=== PATIENT | male | born 1965 | race Caucasian/White ===

== ENCOUNTER 2022-10-18 10:10 | Observation (INO) | payer OTHER, SELFPAY ==
[2022-10-18] VITALS (54 sets, daily range): BP systolic 96–171; BP diastolic 61–106; PULSE 77–134; RESP 12–24; TEMP 36.5–36.9; O2SAT 88–100; BMI 28.4
--- NOTE | 2022-10-18 10:12 | ED.NURSE ---
Pt straight to CT from EMS.
--- NOTE | 2022-10-18 10:15 | ED.NURSE ---
at bedside in imaging.
--- NOTE | 2022-10-18 10:26 | CRLHL7_ITS ---
For Patients: As a result of the Century Cures Act, medical imaging exams and procedure reports are released immediately into your electronic medical record. You may view this report before your referring provider. If you have questions, please contact your health care provider. DATE: 10/18/2022 CLINICAL HISTORY: Patient with aphasia. TECHNIQUE: Standard helical CT image acquisition through the intracranial circulation following intravenous administration of contrast material with bolus tracking. 2D and 3D MIP images for post-processing were performed and interpreted on an independent workstation and 3D images were permanently archived. COMPARISON: CT same day. FINDINGS: There is no cerebral aneurysm or large vessel occlusion. The right internal carotid artery is normal. The right middle cerebral artery and its branches are normal. The right anterior cerebral artery and its branches are normal. The left internal carotid artery is normal. The left middle cerebral artery and its branches are normal. The left anterior cerebral artery and its branches are normal. The anterior communicating artery is well visualized and appears normal. The right vertebral artery and PICA are normal. The left vertebral artery and PICA are normal. The left vertebral artery is dominant. The basilar artery is patent and appears normal. The right posterior cerebral artery is normal. The left posterior cerebral artery is normal. The visualized venous structures are patent. IMPRESSION: Normal CT angiogram of the head without intracranial aneurysm or other neurovascular abnormality. Please note that all CT scans at this facility use dose modulation, iterative reconstruction, and/or weight-based dosing when appropriate to reduce radiation dose to as low as reasonably achievable. Dictated by Aracelis Joseph MD @ 10/18/2022 2:15:16 PM (Electronically Signed)
--- NOTE | 2022-10-18 10:26 | CRLHL7_ITS ---
For Patients: As a result of the Century Cures Act, medical imaging exams and procedure reports are released immediately into your electronic medical record. You may view this report before your referring provider. If you have questions, please contact your health care provider. INDICATION: UNABLE TO COMMUNICATE COMPARISON: none TECHNIQUE: A CT volumetric acquisition was performed of the brain without IV contrast. Please note that all CT scans at this facility use dose modulation, iterative reconstruction, and/or weight-based dosing when appropriate to reduce radiation dose to as low as reasonably achievable. FINDINGS: There is a geographic area of low attenuation involving the left posterior parietal cortex extending into the subcortical white matter with associated ex vacuo dilation of the posterior horn left lateral ventricle. No intracranial hemorrhage or midline shift. No hydrocephalus or extra-axial fluid collection. Mild areas of decreased attenuation are present within the white matter bilaterally. Sinuses demonstrate patchy opacification of the ethmoid air cells. No fracture. 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 No intracranial hemorrhage. Discussed with Dr. Davies immediately following completion of the examination at 10:26 a.m. 10/18/2022. Please note that all CT scans at this facility use dose modulation, iterative reconstruction, and/or weight-based dosing when appropriate to reduce radiation dose to as low as reasonably achievable. Dictated by Edmundo Mukherjee MD @ 10/18/2022 10:54:25 AM (Electronically Signed)
--- NOTE | 2022-10-18 10:26 | CRLHL7_ITS ---
For Patients: As a result of the Century Cures Act, medical imaging exams and procedure reports are released immediately into your electronic medical record. You may view this report before your referring provider. If you have questions, please contact your health care provider. DATE: 10/18/2022 CLINICAL HISTORY: Patient with aphasia. TECHNIQUE: Standard helical CT image acquisition of the neck up to the skull base after bolus intravenous contrast enhancement. 2D and 3D MIP images for post-processing were performed and interpreted on an independent workstation and 3D images were permanently archived. COMPARISON: CT same day. FINDINGS: The origins of the great vessels from the aortic arch are patent. The origin of the right vertebral artery is patent. The origin of the left vertebral artery is patent. The common carotid arteries are patent. There is plaque without stenosis at the origin of the right internal carotid artery. There is plaque without stenosis at the origin of the left internal carotid artery. The rest of the cervical segments of the internal carotid arteries are patent up to the skull base. The left vertebral artery is dominant. The cervical segments of the vertebral arteries are patent up to the skull base. The visualized lung apices are unremarkable. The thyroid gland is unremarkable. The soft tissues of the neck are unremarkable. There are degenerative changes in the cervical spine. IMPRESSION: Patent cervical vasculature. Please note that all CT scans at this facility use dose modulation, iterative reconstruction, and/or weight-based dosing when appropriate to reduce radiation dose to as low as reasonably achievable. Dictated by Aracelis Joseph MD @ 10/18/2022 2:13:16 PM (Electronically Signed)
--- NOTE | 2022-10-18 10:42 | ED.AMS ---
HPI - Altered Mental Status General Date Seen: 10/18/22 Chief Complaint: Neuro Symptoms/Altered Deficit Stated Complaint: stroke Time Seen by Provider: 10/18/22 10:27 Source: patient, family, EMS and RN notes reviewed Mode of arrival: EMS Limitations: altered mental status History of Present Illness HPI narrative: Patient is a 57-year-old male that was brought in by EMS on a red stroke code. He was reportedly found altered at work. Last known well at 9:30 a.m.. Patient is alert, looking at me, hemodynamically stable and maintaining his own airway. He really is not answering questions but will look at me. 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 Cannot get him to move his legs. Unclear if he has pain anywhere. Eyes are conjugate, no nystagmus. Patient was met in the CT scan room, do agree with proceeding with head CT, state in to review the head CT, did not see any definitive bleed but there was encephalomalacia. Dr. Mukherjee did come over briefly look at the head CT and agreed with proceeding with CTAs. MD complaint: altered mental status and confusion Related Data Home Medications Medication Instructions Recorded Confirmed cholecalciferol (vitamin D3) 25 50 mcg PO DAILY 10/18/22 10/18/22 mcg (1,000 unit) tablet dolutegravir 50 mg tablet (Tivicay) 50 mg PO DAILY 10/18/22 10/18/22 emtricitabine 200 mg-tenofovir 1 tab PO DAILY 10/18/22 10/18/22 alafenamide fumarate 25 mg tablet (Descovy) hydrochlorothiazide 25 mg tablet 25 mg PO DAILY 10/18/22 10/18/22 lisinopril 20 mg tablet 20 mg PO DAILY 10/18/22 10/18/22 pantoprazole 40 mg tablet,delayed 40 mg PO DAILY 10/18/22 10/18/22 release simvastatin 20 mg tablet 20 mg PO HS 10/18/22 10/18/22 Allergies Allergy/AdvReac Type Severity Reaction Status Date / Time No Known Drug Allergies Allergy Verified 10/18/22 10:45 Review of Systems Status of ROS: Reports: unobtainable due to mental status PFSH PFSH Social History Smoking Status: Never smoker How often do you have a drink containing alcohol: 2-3 times a week AUDIT-C Alcohol total score: 3 Non-prescribed substance use: denies use Exam Const: Vital Signs, click to edit/add: Vital Signs - 24 hr 10/18/22 10:15 10/18/22 10:32 10/18/22 10:33 Temperature Pulse Rate 90 Pulse Rate [Pulse Oximeter] Respiratory Rate 18 18 Blood Pressure 132/87 Blood Pressure [Le ft Upper Arm] Pulse Oximetry 90 98 88 Oxygen Delivery Me thod Nasal Cannula Room Air Oxygen Flow Rate 2 10/18/22 10:33 10/18/22 10:34 10/18/22 10:35 Temperature 98.5 F Pulse Rate 87 Pulse Rate [Pulse Oximeter] 87 Respiratory Rate 14 Blood Pressure Blood Pressure [Le ft Upper Arm] 143/85 H Pulse Oximetry 92 92 88 Oxygen Delivery Me thod Nasal Cannula Nasal Cannula Room Air Oxygen Flow Rate 2 2 10/18/22 10:47 10/18/22 11:02 10/18/22 11:17 Temperature Pulse Rate 91 94 97 Pulse Rate [Pulse Oximeter] Respiratory Rate 16 14 12 Blood Pressure 146/98 H 159/106 H 163/103 H Blood Pressure [Le ft Upper Arm] Pulse Oximetry 97 93 91 Oxygen Delivery Me thod Oxygen Flow Rate 10/18/22 11:30 10/18/22 11:32 10/18/22 11:42 Temperature Pulse Rate 129 H 122 H 129 H Pulse Rate [Pulse Oximeter] Respiratory Rate 22 24 22 Blood Pressure 171/103 H 168/93 H Blood Pressure [Le ft Upper Arm] Pulse Oximetry 100 98 98 Oxygen Delivery Me thod Ambu-Bag OxyMask Oxygen Flow Rate 15 10 10/18/22 11:45 10/18/22 11:52 10/18/22 12:00 Temperature 98.0 F Pulse Rate 131 H 134 H 134 H Pulse Rate [Pulse Oximeter] Respiratory Rate 24 Blood Pressure 130/84 Blood Pressure [Le ft Upper Arm] Pulse Oximetry 98 97 97 Oxygen Delivery Me thod OxyMask Oxygen Flow Rate 6 10/18/22 12:02 10/18/22 12:11 10/18/22 12:12 Temperature 98.5 F Pulse Rate 132 H 130 H 128 H Pulse Rate [Pulse Oximeter] Respiratory Rate 12 Blood Pressure 119/80 127/79 Blood Pressure [Le ft Upper Arm] Pulse Oximetry 97 93 95 Oxygen Delivery Me thod OxyMask Oxygen Flow Rate 4 07/12/23 12:17 10/18/22 12:22 10/18/22 12:30 Temperature Pulse Rate 124 H 119 H 118 H Pulse Rate [Pulse Oximeter] Respiratory Rate Blood Pressure 127/71 Blood Pressure [Le ft Upper Arm] Pulse Oximetry 96 93 95 Oxygen Delivery Me thod Oxygen Flow Rate 10/18/22 12:32 10/18/22 12:33 10/18/22 12:42 Temperature Pulse Rate 121 H 118 H Pulse Rate [Pulse Oximeter] Respiratory Rate Blood Pressure 117/75 105/61 Blood Pressure [Le ft Upper Arm] Pulse Oximetry 96 95 Oxygen Delivery Me thod Oxygen Flow Rate 10/18/22 12:52 10/18/22 13:01 10/18/22 13:12 Temperature Pulse Rate 105 H 99 95 Pulse Rate [Pulse Oximeter] Respiratory Rate Blood Pressure 96/63 111/77 105/75 Blood Pressure [Le ft Upper Arm] Pulse Oximetry 96 91 92 Oxygen Delivery Me thod Room Air Oxygen Flow Rate 10/18/22 13:21 10/18/22 13:22 10/18/22 13:32 Temperature Pulse Rate 93 93 87 Pulse Rate [Pulse Oximeter] Respiratory Rate 14 Blood Pressure 111/77 114/82 Blood Pressure [Le ft Upper Arm] Pulse Oximetry 92 91 92 Oxygen Delivery Me thod Room Air Oxygen Flow Rate 10/18/22 13:42 10/18/22 13:45 10/18/22 13:52 Temperature Pulse Rate 85 84 86 Pulse Rate [Pulse Oximeter] Respiratory Rate 14 Blood Pressure 110/83 113/81 Blood Pressure [Le ft Upper Arm] Pulse Oximetry 91 93 91 Oxygen Delivery Me thod Oxygen Flow Rate 10/18/22 14:00 10/18/22 14:02 10/18/22 14:11 Temperature Pulse Rate 83 82 83 Pulse Rate [Pulse Oximeter] Respiratory Rate Blood Pressure 114/87 129/93 H Blood Pressure [Le ft Upper Arm] Pulse Oximetry 92 92 96 Oxygen Delivery Me thod Oxygen Flow Rate 10/18/22 14:15 10/18/22 14:24 10/18/22 14:25 Temperature Pulse Rate 86 89 92 Pulse Rate [Pulse Oximeter] Respiratory Rate 16 Blood Pressure Blood Pressure [Le ft Upper Arm] Pulse Oximetry 96 96 98 Oxygen Delivery Me thod Oxygen Flow Rate 10/18/22 14:30 10/18/22 14:32 10/18/22 14:41 Temperature Pulse Rate 87 87 Pulse Rate [Pulse Oximeter] Respiratory Rate Blood Pressure 125/98 H 124/90 H Blood Pressure [Le ft Upper Arm] Pulse Oximetry 98 98 96 Oxygen Delivery Me thod Oxygen Flow Rate Documenting provider has reviewed patient's vital signs: yes Common normals: no apparent distress, average body habitus, alert and well nourished General appearance: cooperative, comfortable, well kempt and well developed Other: Follows with his eyes, no nystagmus. Not really following commands. Will say yes no but not really talk much. Seems to have symmetrical facial function. HENMT: Common normals: normocephalic, head/scalp atraumatic, hearing grossly normal bilaterally, external ears normal and external nose normal Head and scalp: normocephalic and atraumatic Nose: external nose normal External ear: external ears normal Eye: Common normals: PERRL, EOMs intact bilaterally, conjunctivae normal and no scleral icterus Conjunctiva: conjunctiva(e) normal Pupil: PERRL Neck & C-Spine: Common normals: full ROM, no lymphadenopathy, supple, no JVD and thyroid normal Thyroid: thyroid normal Chest: Common normals: inspection of chest normal and palpation of chest normal Resp: Common normals: normal respiratory effort, no retractions, no use of accessory muscles and clear to auscultation bilaterally Auscultation: clear to auscultation bilaterally Cardio: Common normals: no JVD, regular rate, regular rhythm, S1 normal heart sound, S2 normal heart sound, no gallops, no clicks and no murmurs Rate: regular rate Rhythm: regular rhythm Heart sounds: S1 normal and S2 normal GI: Common normals: Normal to inspection, nondistended, normoactive bowel sounds present, soft to palpation, non-tender, no hepatosplenomegaly and no masses Palpation: soft and no hepatosplenomegaly Extremity: Other: Do CE him moving arms and legs at times, can get him to wiggle is feet but really cannot get him to do resisted muscle strength testing. Have not noted a focal deficit, do see him moving everything. Will lift his hands and open his hands but will not grab my hands. Nursing staff has had him grasp hands however. Neuro: Zelda Coma Scale: document GCS findings [place] coma scale eye opening: Spontaneous (4) Zelda coma scale verbal response: Confused (4) Zelda coma scale motor response: Localising (5) [place] coma scale total score: 13 Sensorium/orientation: alert Psych: Appearance: well kempt Course Course Hospital Course: Need to rule out acute HOUSESMITH disease, certainly does not appear to be hemorrhagic on the initial visualization of the head CT. Will get full complement of labs, patient will be monitored on pulse oximetry and cardiac monitoring. Other considerations are toxidromes, infectious etiology, metabolic issues. Will watch him closely. Await neuro reading of these scans. May need to proceed with MRI imaging. We will very likely be talking to Stroke Neurology. Reevaluation(s) Time of Reevaluation #1: 10:53 Reevaluation #1: Darius is alert, awake, still not talking much. Cannot completely get him to follow commands but he is certainly maintaining his airway, hemodynamically stable. He is reported to have a history of a brain bleed 23 years ago. His is here and is able to give us his history. 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 Time of Reevaluation #2: 11:26 Reevaluation #2: Awaiting call back from neurology and was called acutely to patient bedside where he was actively having tonic-clonic seizure. Did receive IV Ativan 0.5mg but was truly starting to keaton at that time. Did order 1500mg IV Keppra from pharmacy as this is likely his second seizure today. He has underlying changes in brain that definitely make him at risk for seizures. Time of Reevaluation #3: 17:00 Reevaluation #3: Have reviewed with Dr. Tsang our hospitalist. Patient is a bit unsteady with walking per nursing staff, still not completely mentally clear. He is overall improved but still not completely tracking. We will place him observation overnight, continue with our initiation of Keppra. Had talked to patient prior, still seems confused but is more conversive. Consultations Consultation #1: Did hear back from Dr. Burch. Unfortunately patient had a seizure just prior to Dr. Burch calling back. He did review his head CT and did think that we should proceed with MRI with and without contrast. He states given this cortical lesion of his prior bleed, certainly would be reason for him to have a seizure disorder now. He agreed with initiation of Keppra. Patient may be able to be discharged home later if stable or observation if there is prolonged postictal course. Time: 11:37 Vital Signs Vital signs: Initial Vital Signs Respiratory Rate 18 10/18/22 10:15 Respiratory Effort Normal, Spontaneous 10/18/22 10:15 Pulse Oximetry 90 10/18/22 10:15 Oxygen Delivery Method Nasal Cannula 10/18/22 10:15 Oxygen Flow Rate 2 10/18/22 10:15 Vital Signs Respiratory Rate 18 10/18/22 10:15 Pulse Oximetry 90 10/18/22 10:15 Oxygen Delivery Method Nasal Cannula 10/18/22 10:15 Oxygen Flow Rate 2 10/18/22 10:15 Temperature 98.5 F 10/18/22 12:12 Pulse Rate 87 10/18/22 14:32 Respiratory Rate 16 10/18/22 14:24 Blood Pressure 124/90 H 10/18/22 14:41 Pulse Oximetry 96 10/18/22 14:41 Oxygen Delivery Method Room Air 10/18/22 13:21 Oxygen Flow Rate 4 10/18/22 12:12 MDM - Altered Mental Status Lab Data Attestation: I reviewed the patient's lab results. Labs: Lab Results 10/18/22 10/18/22 10/18/22 Range/Units 10:25 14:25 14:25 WBC 5.34 (4.50-11.00) K/uL RBC 4.15 L (4.30-5.90) m/uL Hgb 13.0 L (13.5-17.5) gm/dL Hct 38.6 (37.0-53.0) % MCV 93 (80-100) fL MCH 31 (26-34) pg MCHC 34 (32-36) gm/dL RDW Coeff of Denisse 12.6 (11.5-15.5) % Plt Count 237 (140-440) K/uL Neut % (Auto) 56.5 (42.0-72.0) % Lymph % (Auto) 34.8 (20-44) % [place] % (Auto) 6.4 (0.0-11.0) % Eos % (Auto) 1.5 (0.0-7.0) % Baso % (Auto) 0.6 (0.0-3.0) % Neut # (Auto) 3.02 (1.7-7.0) K/uL Lymph # (Auto) 1.86 (0.90-2.90) K/uL [place] # (Auto) 0.30 (0.00-0.90) K/UL Eos # (Auto) 0.08 (0.00-0.50) K/uL Baso # (Auto) 0.03 (0.00-0.30) K/uL Abs Immat Gran (auto) 0.01 (0.00-0.30) K/uL Imm/Tot Granulo (auto) 0.2 % INR 1.01 (0.91-1.10) APTT 28 (23-33) Seconds Sodium 131 L (135-149) mmol/L Potassium 3.2 L (3.6-5.1) mmol/L Chloride 98 (96-114) mmol/L Carbon Dioxide 26 (20-32) mmol/L BUN 14 (7-30) mg/dL Creatinine 0.8 (0.5-1.5) mg/dL Estimated GFR 104 ml/min Glucose 140 H (60-115) mg/dL Lactate 1.6 (0.5-1.9) mmol/L Calcium 8.4 (8.4-10.6) mg/dL Magnesium 1.9 (1.5-2.6) mg/dL Total Bilirubin 0.7 (0.1-1.5) mg/dL AST 38 H (12-35) U/L ALT 30 (4-50) U/L Alkaline Phosphatase 53 (40-150) U/L Troponin I < 0.01 L (0.01-0.04) ng/mL C-Reactive Protein < 0.5 L (0.5-1.0) mg/dL Total Protein 6.4 (6.0-8.3) g/dL Albumin 3.7 (3.3-5.0) g/dL Urine Color Yellow (Yellow) Urine Appearance Clear (Clear) Urine pH 6.0 (5.0-8.5) Ur Specific [place] 1.015 (1.000-1.030) Urine Protein Negative (Negative) Urine Glucose (UA) Trace A (Negative) Urine Ketones Negative (Negative) Urine Blood Trace-intact A (Negative) Urine Nitrite Negative (Negative) Urine Bilirubin Negative (Negative) Urine Urobilinogen 0.2 (0.2-1.0) Ur Leukocyte Esterase Negative (Negative) Urine RBC 0-2 (0-2) Urine WBC 0-2 (0-5) Ur Squamous Epith Cells None (None-Few) Urine Bacteria None (None) Urine Opiates Screen Cancelled Negative Ur Buprenorphine Scrn Cancelled Ur Oxycodone Screen Cancelled Urine Methadone Screen Ur Propoxyphene Screen Ur Barbiturates Screen U Tricyclic Antidepress Ur Phencyclidine Scrn Ur Amphetamines Screen U Methamphetamines Scrn U Benzodiazepines Scrn Urine Cocaine Screen U Marijuana (THC) Screen Ur Drug Screen Comment Ethyl Alcohol < 0.01 L (0.01-0.03) % Lab Acknowledgement 10/18/22 10/18/22 10/18/22 Range/Units 14:25 14:25 14:25 WBC (4.50-11.00) K/uL RBC (4.30-5.90) m/uL Hgb (13.5-17.5) gm/dL Hct (37.0-53.0) % MCV (80-100) fL MCH (26-34) pg MCHC (32-36) gm/dL RDW Coeff of Denisse (11.5-15.5) % Plt Count (140-440) K/uL Neut % (Auto) (42.0-72.0) % Lymph % (Auto) (20-44) % [place] % (Auto) (0.0-11.0) % Eos % (Auto) (0.0-7.0) % Baso % (Auto) (0.0-3.0) % Neut # (Auto) (1.7-7.0) K/uL Lymph # (Auto) (0.90-2.90) K/uL [place] # (Auto) (0.00-0.90) K/UL Eos # (Auto) (0.00-0.50) K/uL Baso # (Auto) (0.00-0.30) K/uL Abs Immat Gran (auto) (0.00-0.30) K/uL Imm/Tot Granulo (auto) % INR (0.91-1.10) APTT (23-33) Seconds Sodium (135-149) mmol/L Potassium (3.6-5.1) mmol/L Chloride (96-114) mmol/L Carbon Dioxide (20-32) mmol/L BUN (7-30) mg/dL Creatinine (0.5-1.5) mg/dL Estimated GFR ml/min Glucose (60-115) mg/dL Lactate (0.5-1.9) mmol/L Calcium (8.4-10.6) mg/dL Magnesium (1.5-2.6) mg/dL Total Bilirubin (0.1-1.5) mg/dL AST (12-35) U/L ALT (4-50) U/L Alkaline Phosphatase (40-150) U/L Troponin I (0.01-0.04) ng/mL C-Reactive Protein (0.5-1.0) mg/dL Total Protein (6.0-8.3) g/dL Albumin (3.3-5.0) g/dL Urine Color (Yellow) Urine Appearance (Clear) Urine pH (5.0-8.5) Ur Specific [place] (1.000-1.030) Urine Protein (Negative) Urine Glucose (UA) (Negative) Urine Ketones (Negative) Urine Blood (Negative) Urine Nitrite (Negative) Urine Bilirubin (Negative) Urine Urobilinogen (0.2-1.0) Ur Leukocyte Esterase (Negative) Urine RBC (0-2) Urine WBC (0-5) Ur Squamous Epith Cells (None-Few) Urine Bacteria (None) Urine Opiates Screen Ur Buprenorphine Scrn Ur Oxycodone Screen Negative Urine Methadone Screen Cancelled Negative Ur Propoxyphene Screen Cancelled Negative Ur Barbiturates Screen Cancelled U Tricyclic Antidepress Ur Phencyclidine Scrn Ur Amphetamines Screen U Methamphetamines Scrn U Benzodiazepines Scrn Urine Cocaine Screen U Marijuana (THC) Screen Ur Drug Screen Comment Ethyl Alcohol (0.01-0.03) % Lab Acknowledgement 10/18/22 10/18/22 10/18/22 Range/Units 14:25 14:25 14:25 WBC (4.50-11.00) K/uL RBC (4.30-5.90) m/uL Hgb (13.5-17.5) gm/dL Hct (37.0-53.0) % MCV (80-100) fL MCH (26-34) pg MCHC (32-36) gm/dL RDW Coeff of Denisse (11.5-15.5) % Plt Count (140-440) K/uL Neut % (Auto) (42.0-72.0) % Lymph % (Auto) (20-44) % [place] % (Auto) (0.0-11.0) % Eos % (Auto) (0.0-7.0) % Baso % (Auto) (0.0-3.0) % Neut # (Auto) (1.7-7.0) K/uL Lymph # (Auto) (0.90-2.90) K/uL [place] # (Auto) (0.00-0.90) K/UL Eos # (Auto) (0.00-0.50) K/uL Baso # (Auto) (0.00-0.30) K/uL Abs Immat Gran (auto) (0.00-0.30) K/uL Imm/Tot Granulo (auto) % INR (0.91-1.10) APTT (23-33) Seconds Sodium (135-149) mmol/L Potassium (3.6-5.1) mmol/L Chloride (96-114) mmol/L Carbon Dioxide (20-32) mmol/L BUN (7-30) mg/dL Creatinine (0.5-1.5) mg/dL Estimated GFR ml/min Glucose (60-115) mg/dL Lactate (0.5-1.9) mmol/L Calcium (8.4-10.6) mg/dL Magnesium (1.5-2.6) mg/dL Total Bilirubin (0.1-1.5) mg/dL AST (12-35) U/L ALT (4-50) U/L Alkaline Phosphatase (40-150) U/L Troponin I (0.01-0.04) ng/mL C-Reactive Protein (0.5-1.0) mg/dL Total Protein (6.0-8.3) g/dL Albumin (3.3-5.0) g/dL Urine Color (Yellow) Urine Appearance (Clear) Urine pH (5.0-8.5) Ur Specific [place] (1.000-1.030) Urine Protein (Negative) Urine Glucose (UA) (Negative) Urine Ketones (Negative) Urine Blood (Negative) Urine Nitrite (Negative) Urine Bilirubin (Negative) Urine Urobilinogen (0.2-1.0) Ur Leukocyte Esterase (Negative) Urine RBC (0-2) Urine WBC (0-5) Ur Squamous Epith Cells (None-Few) Urine Bacteria (None) Urine Opiates Screen Ur Buprenorphine Scrn Ur Oxycodone Screen Urine Methadone Screen Ur Propoxyphene Screen Ur Barbiturates Screen Negative U Tricyclic Antidepress Cancelled Negative Ur Phencyclidine Scrn Cancelled Negative Ur Amphetamines Screen Cancelled U Methamphetamines Scrn U Benzodiazepines Scrn Urine Cocaine Screen U Marijuana (THC) Screen Ur Drug Screen Comment Ethyl Alcohol (0.01-0.03) % Lab Acknowledgement 10/18/22 10/18/22 10/18/22 Range/Units 14:25 14:25 14:25 WBC (4.50-11.00) K/uL RBC (4.30-5.90) m/uL Hgb (13.5-17.5) gm/dL Hct (37.0-53.0) % MCV (80-100) fL MCH (26-34) pg MCHC (32-36) gm/dL RDW Coeff of Denisse (11.5-15.5) % Plt Count (140-440) K/uL Neut % (Auto) (42.0-72.0) % Lymph % (Auto) (20-44) % [place] % (Auto) (0.0-11.0) % Eos % (Auto) (0.0-7.0) % Baso % (Auto) (0.0-3.0) % Neut # (Auto) (1.7-7.0) K/uL Lymph # (Auto) (0.90-2.90) K/uL [place] # (Auto) (0.00-0.90) K/UL Eos # (Auto) (0.00-0.50) K/uL Baso # (Auto) (0.00-0.30) K/uL Abs Immat Gran (auto) (0.00-0.30) K/uL Imm/Tot Granulo (auto) % INR (0.91-1.10) APTT (23-33) Seconds Sodium (135-149) mmol/L Potassium (3.6-5.1) mmol/L Chloride (96-114) mmol/L Carbon Dioxide (20-32) mmol/L BUN (7-30) mg/dL Creatinine (0.5-1.5) mg/dL Estimated GFR ml/min Glucose (60-115) mg/dL Lactate (0.5-1.9) mmol/L Calcium (8.4-10.6) mg/dL Magnesium (1.5-2.6) mg/dL Total Bilirubin (0.1-1.5) mg/dL AST (12-35) U/L ALT (4-50) U/L Alkaline Phosphatase (40-150) U/L Troponin I (0.01-0.04) ng/mL C-Reactive Protein (0.5-1.0) mg/dL Total Protein (6.0-8.3) g/dL Albumin (3.3-5.0) g/dL Urine Color (Yellow) Urine Appearance (Clear) Urine pH (5.0-8.5) Ur Specific [place] (1.000-1.030) Urine Protein (Negative) Urine Glucose (UA) (Negative) Urine Ketones (Negative) Urine Blood (Negative) Urine Nitrite (Negative) Urine Bilirubin (Negative) Urine Urobilinogen (0.2-1.0) Ur Leukocyte Esterase (Negative) Urine RBC (0-2) Urine WBC (0-5) Ur Squamous Epith Cells (None-Few) Urine Bacteria (None) Urine Opiates Screen Ur Buprenorphine Scrn Ur Oxycodone Screen Urine Methadone Screen Ur Propoxyphene Screen Ur Barbiturates Screen U Tricyclic Antidepress Ur Phencyclidine Scrn Ur Amphetamines Screen Negative U Methamphetamines Scrn Cancelled Negative U Benzodiazepines Scrn Cancelled Negative Urine Cocaine Screen Cancelled U Marijuana (THC) Screen Ur Drug Screen Comment Ethyl Alcohol (0.01-0.03) % Lab Acknowledgement 10/18/22 10/18/22 10/18/22 Range/Units 14:25 14:25 14:25 WBC (4.50-11.00) K/uL RBC (4.30-5.90) m/uL Hgb (13.5-17.5) gm/dL Hct (37.0-53.0) % MCV (80-100) fL MCH (26-34) pg MCHC (32-36) gm/dL RDW Coeff of Denisse (11.5-15.5) % Plt Count (140-440) K/uL Neut % (Auto) (42.0-72.0) % Lymph % (Auto) (20-44) % [place] % (Auto) (0.0-11.0) % Eos % (Auto) (0.0-7.0) % Baso % (Auto) (0.0-3.0) % Neut # (Auto) (1.7-7.0) K/uL Lymph # (Auto) (0.90-2.90) K/uL [place] # (Auto) (0.00-0.90) K/UL Eos # (Auto) (0.00-0.50) K/uL Baso # (Auto) (0.00-0.30) K/uL Abs Immat Gran (auto) (0.00-0.30) K/uL Imm/Tot Granulo (auto) % INR (0.91-1.10) APTT (23-33) Seconds Sodium (135-149) mmol/L Potassium (3.6-5.1) mmol/L Chloride (96-114) mmol/L Carbon Dioxide (20-32) mmol/L BUN (7-30) mg/dL Creatinine (0.5-1.5) mg/dL Estimated GFR ml/min Glucose (60-115) mg/dL Lactate (0.5-1.9) mmol/L Calcium (8.4-10.6) mg/dL Magnesium (1.5-2.6) mg/dL Total Bilirubin (0.1-1.5) mg/dL AST (12-35) U/L ALT (4-50) U/L Alkaline Phosphatase (40-150) U/L Troponin I (0.01-0.04) ng/mL C-Reactive Protein (0.5-1.0) mg/dL Total Protein (6.0-8.3) g/dL Albumin (3.3-5.0) g/dL Urine Color (Yellow) Urine Appearance (Clear) Urine pH (5.0-8.5) Ur Specific [place] (1.000-1.030) Urine Protein (Negative) Urine Glucose (UA) (Negative) Urine Ketones (Negative) Urine Blood (Negative) Urine Nitrite (Negative) Urine Bilirubin (Negative) Urine Urobilinogen (0.2-1.0) Ur Leukocyte Esterase (Negative) Urine RBC (0-2) Urine WBC (0-5) Ur Squamous Epith Cells (None-Few) Urine Bacteria (None) Urine Opiates Screen Ur Buprenorphine Scrn Ur Oxycodone Screen Urine Methadone Screen Ur Propoxyphene Screen Ur Barbiturates Screen U Tricyclic Antidepress Ur Phencyclidine Scrn Ur Amphetamines Screen U Methamphetamines Scrn U Benzodiazepines Scrn Urine Cocaine Screen Negative U Marijuana (THC) Screen Cancelled POSITIVE A* Ur Drug Screen Comment Cancelled See Note Ethyl Alcohol (0.01-0.03) % Lab Acknowledgement 10/18/22 Range/Units 15:12 WBC (4.50-11.00) K/uL RBC (4.30-5.90) m/uL Hgb (13.5-17.5) gm/dL Hct (37.0-53.0) % MCV (80-100) fL MCH (26-34) pg MCHC (32-36) gm/dL RDW Coeff of Denisse (11.5-15.5) % Plt Count (140-440) K/uL Neut % (Auto) (42.0-72.0) % Lymph % (Auto) (20-44) % [place] % (Auto) (0.0-11.0) % Eos % (Auto) (0.0-7.0) % Baso % (Auto) (0.0-3.0) % Neut # (Auto) (1.7-7.0) K/uL Lymph # (Auto) (0.90-2.90) K/uL [place] # (Auto) (0.00-0.90) K/UL Eos # (Auto) (0.00-0.50) K/uL Baso # (Auto) (0.00-0.30) K/uL Abs Immat Gran (auto) (0.00-0.30) K/uL Imm/Tot Granulo (auto) % INR (0.91-1.10) APTT (23-33) Seconds Sodium (135-149) mmol/L Potassium (3.6-5.1) mmol/L Chloride (96-114) mmol/L Carbon Dioxide (20-32) mmol/L BUN (7-30) mg/dL Creatinine (0.5-1.5) mg/dL Estimated GFR ml/min Glucose (60-115) mg/dL Lactate (0.5-1.9) mmol/L Calcium (8.4-10.6) mg/dL Magnesium (1.5-2.6) mg/dL Total Bilirubin (0.1-1.5) mg/dL AST (12-35) U/L ALT (4-50) U/L Alkaline Phosphatase (40-150) U/L Troponin I (0.01-0.04) ng/mL C-Reactive Protein (0.5-1.0) mg/dL Total Protein (6.0-8.3) g/dL Albumin (3.3-5.0) g/dL Urine Color (Yellow) Urine Appearance (Clear) Urine pH (5.0-8.5) Ur Specific [place] (1.000-1.030) Urine Protein (Negative) Urine Glucose (UA) (Negative) Urine Ketones (Negative) Urine Blood (Negative) Urine Nitrite (Negative) Urine Bilirubin (Negative) Urine Urobilinogen (0.2-1.0) Ur Leukocyte Esterase (Negative) Urine RBC (0-2) Urine WBC (0-5) Ur Squamous Epith Cells (None-Few) Urine Bacteria (None) Urine Opiates Screen Ur Buprenorphine Scrn Ur Oxycodone Screen Urine Methadone Screen Ur Propoxyphene Screen Ur Barbiturates Screen U Tricyclic Antidepress Ur Phencyclidine Scrn Ur Amphetamines Screen U Methamphetamines Scrn U Benzodiazepines Scrn Urine Cocaine Screen U Marijuana (THC) Screen Ur Drug Screen Comment Ethyl Alcohol (0.01-0.03) % Lab Acknowledgement Test Added Imaging Data CT scan - head: Attestation: I have reviewed the pertinent imaging results. Radiologist's impression: Patient: DORIAN SMART Facility:?[facility] Patient ID:?[id number] Site Patient ID:?[id number]. Site :?10/21/1946 Study:?MRI Head W/O-10/18/2022 9:56:54 AM Ordering Physician:Ed Diaz Final Report: Indication: Transient ischemic attack. Difficulty speaking. Technique: Multiplanar, multisequence MRI of the brain was performed without intravenous contrast. Comparison: CT head 10/17/2022. Findings: Mild thinning of the corpus callosum. The clivus appears intact. Mild degenerative change visualized upper cervical spine. There is no restricted diffusion. No intracranial hemorrhage. The ventricles are proportionate to the cerebral sulci. The 4th ventricle appears midline. The basal cisterns appear patent. No abnormal extra-axial fluid collection identified. Moderate parenchymal volume loss. Moderate T2 FLAIR hyperintense foci within the subcortical and periventricular white matter, favored to represent chronic ischemic microvascular disease. There is no intracranial mass, abnormal mass-effect or midline shift identified. Major intracranial vascular flow voids appear grossly intact. Thinning of the ocular lenses. Impression: 1. No acute/subacute infarct. 2. Moderate chronic ischemic microvascular disease. Dictated by Fidencio Pace MD @ 10/18/2022 10:11:29 AM (Electronic Signature) CT angio head: Attestation: I have reviewed the pertinent imaging results. Radiologist's impression: Patient: DARIUS MALLOY Facility:?[facility] Patient ID:?[id number] Site Patient ID:?[id number]. Site :?1965 Study:?CT Head Angio W/95CC [id number] ACUTE STROKE ALL SAMANTHA-10/18/2022 10:37:47 AM Ordering Physician:Britney Pineda Preliminary Report: CTA head: No evidence of intracranial proximal arterial occlusion or critical stenosis. CTA neck: No evidence of hemodynamically significant stenosis or acute dissection in the neck. Dictated by Hortensia Alberts MD @ 10/18/2022 10:56:15 AM Read by:?Hortensia Alberts MD @ 10/18/2022 10:56:23 MRI - head: Attestation: I have reviewed the pertinent imaging results. Radiologist's impression: Patient: DARIUS MALLOY Facility:?[facility] Patient ID:?[id number] Site Patient ID:?[id number]. Site :?1965 Study:?MRI Head W/ and W/O Cont 15 ML DOTAREM-10/18/2022 3:59:49 PM Ordering Physician:Britney Pineda Final Report: Indication: Unresponsive. Seizure. History of previous stroke. Technique: Multiplanar, multisequence MRI of the brain was performed without and with intravenous contrast. Contrast: 15 cc Dotarem. Comparison: CT head, CTA head and neck 10/18/2022. Findings: The corpus callosum, pituitary gland and clivus appear intact. Mild degenerative change visualized upper cervical spine. There is no restricted diffusion. No intracranial hemorrhage. The hippocampal formations and parahippocampal gyri are preserved without abnormal signal or volume loss. The ventricles are proportionate to the cerebral sulci. The 4th ventricle appears midline. The basal cisterns appear patent. No abnormal extra-axial fluid collection identified. Moderate region of encephalomalacia and gliosis involving the left temporoparietal junction, compatible with chronic infarct. Internal susceptibility, compatible with chronic hemosiderin deposition. There is no intracranial mass, abnormal mass-effect or midline shift identified. No abnormal enhancement. Developmental venous anomaly left parieto-occipital junction. Major intracranial vascular flow voids appear grossly intact. Both globes are preserved. Mild paranasal sinus mucosal disease. Impression: 1. No acute/subacute infarct. 2. Chronic left temporoparietal junction infarct, with chronic hemosiderin deposition. Dictated by Fidencio Pace MD @ 10/18/2022 4:08:53 PM (Electronic Signature) Chest x-ray: Attestation: I have reviewed the pertinent imaging results. Radiologist's impression: Patient: DARIUS MALLOY Facility:?[facility] Patient ID:?[id number] Site Patient ID:?[id number]. Site :?1965 Study:?XRay Chest PORTABLE-10/18/2022 12:05:14 PM Ordering Physician:?Kai Pineda Final Report: INDICATION: Hypoxia, s/p seizure TECHNIQUE: Chest 1 view COMPARISON: 05/13/2014 FINDINGS: Incidental prominence of the right anterior 1st rib. No infiltrate or edema. No effusion or pneumothorax. Mediastinum unchanged given differences in obliquity. IMPRESSION: No acute findings. Dictated by Edmundo Mukherjee MD @ 10/18/2022 12:08:03 PM (Electronic Signature) ECG Data Attestation: I personally reviewed and interpreted this ECG as follows: (Sinus rhythm, 90 beats per minute, no ischemia or arrhythmia. QT corrected 425 milliseconds.) ECG interpretation date: 10/18/22 ECG interpretation time: 11:00 Critical Care Time Critical Care Time Critical Care Time: Yes Attestation: The patient required my highest level preparedness to intervene emergently and I personally spent this critical care time directly and personally managing the patient. This critical care time included: Obtaining a history; Examining the patient; Pulse oximetry; Ordering and reviewing of studies; Arranging urgent treatment with development of a management plan; Evaluation of patients response to treatment; Frequent reassessment discussions with other providers. This critical care time was performed to assess and manage the high probability of imminent life-threatening deterioration that could result in multiorgan failure. It was exclusive of separate billable procedures and treating other patients and teaching time. Total Critical Care Time in Minutes: 45 Discharge Plan Discharge Clinical Impression: Seizure Patient Disposition: Admitted As Observation
[2022-10-18 10:57] LABS: Lactate* 1.6 mmol/L (0.5-1.9)
[2022-10-18 11:14] LABS: Albumin* 3.7 g/dL (3.3-5.0); Chloride* 98 mmol/L (96-114)
[2022-10-18 11:15] LABS: INR 1.01 (0.91-1.10); Potassium* 3.2 mmol/L (3.6-5.1); Prothrombin Time 13.9 Seconds; Sodium* 131 mmol/L (135-149)
[2022-10-18 11:16] LABS: Partial Thromboplastin Time* 28 Seconds (23-33)
[2022-10-18 11:17] LABS: Aspartate Amino Transferase* 38 U/L (12-35); Bilirubin Total* 0.7 mg/dL (0.1-1.5); Carbon Dioxide* 26 mmol/L (20-32); Creatinine* 0.8 mg/dL (0.5-1.5); Estimated Glomerular Filt Rate 104 ml/min; Magnesium* 1.9 mg/dL (1.5-2.6); Total Protein* 6.4 g/dL (6.0-8.3)
[2022-10-18 11:18] LABS: Alanine Aminotransferase* 30 U/L (4-50); Alkaline Phosphatase* 53 U/L (40-150); Blood Urea Nitrogen* 14 mg/dL (7-30); Calcium* 8.4 mg/dL (8.4-10.6); Glucose* 140 mg/dL (60-115)
[2022-10-18 11:21] LABS: C Reactive Protein* < 0.5 mg/dL (0.5-1.0); Ethanol* < 0.01 % (0.01-0.03)
[2022-10-18] MEDS: LORazepam 2 MG/ML inj 0.5 MG IVP (11:27)
[2022-10-18 11:37] LABS: Troponin I* < 0.01 ng/mL (0.01-0.04)
--- NOTE | 2022-10-18 11:37 | CRLHL7_ITS ---
For Patients: As a result of the Century Cures Act, medical imaging exams and procedure reports are released immediately into your electronic medical record. You may view this report before your referring provider. If you have questions, please contact your health care provider. Indication: Unresponsive. Seizure. History of previous stroke. Technique: Multiplanar, multisequence MRI of the brain was performed without and with intravenous contrast. Contrast: 15 cc Dotarem. Comparison: CT head, CTA head and neck 10/18/2022. Findings: The corpus callosum, pituitary gland and clivus appear intact. Mild degenerative change visualized upper cervical spine. There is no restricted diffusion. No intracranial hemorrhage. The hippocampal formations and parahippocampal gyri are preserved without abnormal signal or volume loss. The ventricles are proportionate to the cerebral sulci. The 4th ventricle appears midline. The basal cisterns appear patent. No abnormal extra-axial fluid collection identified. Moderate region of encephalomalacia and gliosis involving the left temporoparietal junction, compatible with chronic infarct. Internal susceptibility, compatible with chronic hemosiderin deposition. There is no intracranial mass, abnormal mass-effect or midline shift identified. No abnormal enhancement. Developmental venous anomaly left parieto-occipital junction. Major intracranial vascular flow voids appear grossly intact. Both globes are preserved. Mild paranasal sinus mucosal disease. Impression: 1. No acute/subacute infarct. 2. Chronic left temporoparietal junction infarct, with chronic hemosiderin deposition. Dictated by Fidencio Pace MD @ 10/18/2022 4:08:53 PM (Electronically Signed)
--- NOTE | 2022-10-18 11:50 | CRLHL7_ITS ---
For Patients: As a result of the Cures Act, medical imaging exams and procedure reports are released immediately into your electronic medical record. You may view this report before your referring provider. If you have questions, please contact your health care provider. INDICATION: Hypoxia, s/p seizure TECHNIQUE: Chest 1 view COMPARISON: 05/13/2014 FINDINGS: Incidental prominence of the right anterior 1st rib. No infiltrate or edema. No effusion or pneumothorax. Mediastinum unchanged given differences in obliquity. IMPRESSION: No acute findings. Dictated by Edmundo Mukherjee MD @ 10/18/2022 12:08:03 PM (Electronically Signed)
[2022-10-18] MEDS: 0.9 % SODIUM CHLORIDE 500 ML 500 ML IV (12:00)
--- NOTE | 2022-10-18 12:00 | RESP.RT ---
10:30 AM patient having seizure, bag/mask assisted ventilation x 5 minutes, placed on OxyMask 10 Lpm SaO2 100%, weaning OxyMask as patient needs to 92-94% SaO2. Patient snoring, 10.0 O.D. nasal air placed with ease. Snoring stopped. Respiratory rate 24/minute, regular.
--- NOTE | 2022-10-18 12:33 | ED.NURSE ---
1125- Witnessed seizure-like activity, lasting aprox 60 seconds. 1127- Ativan 0.5mg IVP given. Seizure-like activity ceased. 1128- BVM started by RT. 1130-Oxymask in place. 1135-Nasal airway inserted by RT. 1144-Keppra 1500mg infusion started.
--- NOTE | 2022-10-18 14:00 | ED.NURSE ---
Pt alert and answering questions appropriately, aprox 50% of questions.
[2022-10-18 14:40] LABS: Basophils Absolute Auto 0.03 K/uL (0.00-0.30); Basophils Percent Auto 0.6 % (0.0-3.0); Eosinophils Absolute Auto 0.08 K/uL (0.00-0.50); Eosinophils Percent Auto 1.5 % (0.0-7.0); Hematocrit 38.6 % (37.0-53.0); Immature Granulocytes Abs Auto 0.01 K/uL (0.00-0.30); Immature Granulocytes Pct Auto 0.2 %; Lymphocytes Absolute Auto 1.86 K/uL (0.90-2.90); Lymphocytes Percent Auto 34.8 % (20-44); Mean Corpuscular HGB Conc 34 gm/dL (32-36); Mean Corpuscular Hemoglobin 31 pg (26-34); Mean Corpuscular Volume 93 fL (80-100); Monocytes Percent Auto 6.4 % (0.0-11.0); Neutrophils Absolute Auto 3.02 K/uL (1.7-7.0); Neutrophils Percent Auto 56.5 % (42.0-72.0); Platelet Count* 237 K/uL (140-440); RDW Coefficient of Variation % 12.6 % (11.5-15.5); Red Blood Count 4.15 m/uL (4.30-5.90); White Blood Count* 5.34 K/uL (4.50-11.00)
[2022-10-18 14:41] LABS: Appearance Urine Clear (Clear); Bilirubin Urine Negative (Negative); Blood Urine Trace-intact (Negative); Color Urine Yellow (Yellow); Glucose Urine Trace (Negative); Ketones Urine Negative (Negative); Leukocyte Esterase Urine Negative (Negative); Nitrite Urine Negative (Negative); Protein Urine Negative (Negative); Specific Gravity Urine 1.015 (1.000-1.030); Urobilinogen Urine 0.2 (0.2-1.0)
[2022-10-18 14:44] LABS: Slide Review Reflex No
--- NOTE | 2022-10-18 15:06 | ED.NURSE ---
Pt continues at MRI.
[2022-10-18 15:26] LABS: Amphetamine Screen Urine Negative (Negative); Barbiturate Screen Urine Negative (Negative); Benzodiazepines Screen Urine Negative (Negative); Cocaine Screen Urine Negative (Negative); Methadone Screen Urine Negative (Negative); Methamphetamines Screen Urine Negative (Negative); Opiate Screen Urine Negative (Negative); Oxycodone Screen Urine Negative (Negative); Phencyclidine Screen Urine Negative (Negative); Tricyclic Antidepressant Urine Negative (Negative)
[2022-10-18 16:07] LABS: RBC Urine 0-2 (0-2); WBC Urine 0-2 (0-5)
[2022-10-18 16:18] LABS: Cannabinoid Screen Urine POSITIVE (Negative)
[2022-10-18] MEDS: ACETAMINOPHEN 500 MG TABLET 1000 MG PO (17:42)
--- NOTE | 2022-10-18 17:58 | ED.NURSE ---
Able to converse and relay events of AM. Does not recall seizure-like activity at hospital. Answering questions appropriately with occasional assistance in word finding. MAEW, no facial droop, slurred speech.
--- NOTE | 2022-10-18 18:31 | P.IMHP_ITS ---
Hospitalist- H&P: HPI History of Present Illness Date Seen: 10/18/22 Chief complaint: stroke Narrative: Michael Maria is a 57 year old male with history of hemorrhagic stroke, HIV, hypertension, hyperlipidemia presents with onset of altered mental status today. Patient reports that he was in his usual state of good health until this morning at work when he noted disturbances in years visual souza, difficulty responding to things going on around him, unable to carry on a conversation, dizziness. He was not observed to have 80s seizure. He did not lose consciousness. Did not fall, bite his tongue or his cheek or lose continence of bowel or bladder. He had trouble communicating with his co-worker and his co- worker called the manufacturing engineer supervisor and they called 911 and brought him to the emergency room. He was concerned he was having a stroke as he had a hemorrhagic stroke about 22 years ago. Sequela that stroke included some apraxia. He was diagnosed with Gerstmann syndrome which includes acalcula, agraphia, finger agnosia, and right left disorientation. Initially evaluated in the emergency room for an acute stroke. Head CT showed evidence of his old stroke but no evidence of bleeding. He then had a witnessed tonic clonic seizure in the emergency department. This stopped after a small amount of lorazepam. He was given Keppra for seizure treatment. Brain MRI showed evidence of old stroke without new stroke, bleeding or mass. He continued to have some alteration of his mental status and so was admitted to the hospital for further evaluation. Reports recently feeling well. He has not had any recent illness, fever, cold, chest pain, shortness of breath, abdominal pain, nausea, vomiting, diarrhea, bleeding or clotting problems. No unexplained injuries or head injury. Does have a chronic cough which has not changed recently. He has HIV infection which has been stable. He reports complete viral suppression with ongoing treatment through [facility]. He also has a history of treated hepatitis-C infection and previous hepatitis-B infection. He has diabetes for which he does not take medication. Review of Systems Narrative: Prior to the events of today he was feeling well. With no recent illness or injury. [facility] Medical History (Updated 10/18/22 @ 19:02 by Joe Tsang MD) Gerstmanns syndrome ?R48.8 - Other symbolic dysfunctions (ICD-10) Hemorrhagic stroke ?I61.9 - Nontraumatic intracerebral hemorrhage, unspecified (ICD-10) Hepatitis B carrier ?B18.1 - Chronic viral hepatitis B without delta-agent (ICD-10) Gastroesophageal reflux disease ?K21.9 - Gastro-esophageal reflux disease without esophagitis (ICD-10) Hepatitis C ?B19.20 - Unspecified viral hepatitis C without hepatic coma (ICD-10) Hyperlipidemia ?E78.5 - Hyperlipidemia, unspecified (ICD-10) GI bleed ?K92.2 - Gastrointestinal hemorrhage, unspecified (ICD-10) Hypertension ?I10 - Essential (primary) hypertension (ICD-10) HIV infection ?B20 - Human immunodeficiency virus [HIV] disease (ICD-10) Surgical History (Updated 10/18/22 @ 18:44 by Joe Tsang MD) History of esophagogastroduodenoscopy (EGD) ?Z98.890 - Other specified postprocedural states (ICD-10) Social History (Updated 10/18/22 @ 18:46 by Joe Tsang MD) Narrative: Family history: Patient is adopted He lives with his in [place]. 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 He smokes is pack of cigarettes a day. He drinks 0-6 beers per day. During the school year he does not drink on week days. In the summer and on weekends he will drink up to 6 beers in 1 day. Does not have a problem with alcohol withdrawal. He uses THC. His is healthcare power of contract attorney. Code status is full. Smoking Status: Never smoker How often do you have a drink containing alcohol: 2-3 times a week AUDIT-C Alcohol total score: 3 Non-prescribed substance use: denies use Meds Home Medications and Allergies Home Medications Medication Instructions Recorded Confirmed Type cholecalciferol (vitamin D3) 25 50 mcg PO DAILY 10/18/22 10/18/22 History mcg (1,000 unit) tablet dolutegravir 50 mg tablet (Tivicay) 50 mg PO DAILY 10/18/22 10/18/22 History emtricitabine 200 mg-tenofovir 1 tab PO DAILY 10/18/22 10/18/22 History alafenamide fumarate 25 mg tablet (Descovy) hydrochlorothiazide 25 mg tablet 25 mg PO DAILY 10/18/22 10/18/22 History lisinopril 20 mg tablet 20 mg PO DAILY 10/18/22 10/18/22 History pantoprazole 40 mg tablet,delayed 40 mg PO DAILY 10/18/22 10/18/22 History release simvastatin 20 mg tablet 20 mg PO HS 10/18/22 10/18/22 History Allergies Allergy/AdvReac Type Severity Reaction Status Date / Time No Known Drug Allergies Allergy Verified 10/18/22 10:45 Exam Narrative: Exam Narrative: He is alert and appears in no distress. Speech is fluent. He struggles to answer many questions about past medical history. Does not know his medications. Head is without apparent trauma. Eyes are normal. Extraocular movements are full. Visual souza are intact. No facial asymmetry. Oropharynx is normal. Neck is supple without mass or adenopathy. Respirations are clear to auscultation with a rare basilar crackle. Cardiovascular: S1, S2, regular rate and rhythm. No murmur gallop or rub. Abdomen: Bowel sounds active. Abdomen is soft without tenderness or mass. External genitalia normal. Upper extremities with 5/5 strength in shoulder flexion and extension, elbow flexion extension, wrist flexion extension, finger extension and dining room server strength. Vozrzx-aeml-sttdky is done with great difficulty. He is unable to initiate the motion with verbal instructions. He performs it incorrectly but without ataxia when I give him visual direction and demonstration. Heel-chapman maneuvers with the same apraxia without ataxia. Lower extremity strength is symmetric bilaterally at 5/5 in hip flexion, knee flexion and extension, ankle dorsiflexion and plantar flexion. Const: Vital Signs, click to edit/add: Vital Signs - 24 hr 10/18/22 10:15 10/18/22 10:32 10/18/22 10:33 Temperature Pulse Rate 90 Pulse Rate [Pulse Oximeter] Respiratory Rate 18 18 Blood Pressure 132/87 Blood Pressure [Le ft Upper Arm] Pulse Oximetry 90 98 88 Oxygen Delivery Me thod Nasal Cannula Room Air Oxygen Flow Rate 2 10/18/22 10:33 10/18/22 10:34 10/18/22 10:35 Temperature 98.5 F Pulse Rate 87 Pulse Rate [Pulse Oximeter] 87 Respiratory Rate 14 Blood Pressure Blood Pressure [Le ft Upper Arm] 143/85 H Pulse Oximetry 92 92 88 Oxygen Delivery Me thod Nasal Cannula Nasal Cannula Room Air Oxygen Flow Rate 2 2 10/18/22 10:47 10/18/22 11:02 10/18/22 11:17 Temperature Pulse Rate 91 94 97 Pulse Rate [Pulse Oximeter] Respiratory Rate 16 14 12 Blood Pressure 146/98 H 159/106 H 163/103 H Blood Pressure [Le ft Upper Arm] Pulse Oximetry 97 93 91 Oxygen Delivery Me thod Oxygen Flow Rate 10/18/22 11:30 10/18/22 11:32 10/18/22 11:42 Temperature Pulse Rate 129 H 122 H 129 H Pulse Rate [Pulse Oximeter] Respiratory Rate 22 24 22 Blood Pressure 171/103 H 168/93 H Blood Pressure [Le ft Upper Arm] Pulse Oximetry 100 98 98 Oxygen Delivery Me thod Ambu-Bag OxyMask Oxygen Flow Rate 15 10 10/18/22 11:45 10/18/22 11:52 10/18/22 12:00 Temperature 98.0 F Pulse Rate 131 H 134 H 134 H Pulse Rate [Pulse Oximeter] Respiratory Rate 24 Blood Pressure 130/84 Blood Pressure [Le ft Upper Arm] Pulse Oximetry 98 97 97 Oxygen Delivery Me thod OxyMask Oxygen Flow Rate 6 10/18/22 12:02 10/18/22 12:11 10/18/22 12:12 Temperature 98.5 F Pulse Rate 132 H 130 H 128 H Pulse Rate [Pulse Oximeter] Respiratory Rate 12 Blood Pressure 119/80 127/79 Blood Pressure [Le ft Upper Arm] Pulse Oximetry 97 93 95 Oxygen Delivery Me thod OxyMask Oxygen Flow Rate 4 10/18/22 12:17 10/18/22 12:22 10/18/22 12:30 Temperature Pulse Rate 124 H 119 H 118 H Pulse Rate [Pulse Oximeter] Respiratory Rate Blood Pressure 127/71 Blood Pressure [Le ft Upper Arm] Pulse Oximetry 96 93 95 Oxygen Delivery Me thod Oxygen Flow Rate 10/18/22 12:32 10/18/22 12:33 10/18/22 12:42 Temperature Pulse Rate 121 H 118 H Pulse Rate [Pulse Oximeter] Respiratory Rate Blood Pressure 117/75 105/61 Blood Pressure [Le ft Upper Arm] Pulse Oximetry 96 95 Oxygen Delivery Me thod Oxygen Flow Rate 10/18/22 12:52 10/18/22 13:01 10/18/22 13:12 Temperature Pulse Rate 105 H 99 95 Pulse Rate [Pulse Oximeter] Respiratory Rate Blood Pressure 96/63 111/77 105/75 Blood Pressure [Le ft Upper Arm] Pulse Oximetry 96 91 92 Oxygen Delivery Me thod Room Air Oxygen Flow Rate 10/18/22 13:21 10/18/22 13:22 10/18/22 13:32 Temperature Pulse Rate 93 93 87 Pulse Rate [Pulse Oximeter] Respiratory Rate 14 Blood Pressure 111/77 114/82 Blood Pressure [Le ft Upper Arm] Pulse Oximetry 92 91 92 Oxygen Delivery Me thod Room Air Oxygen Flow Rate 10/18/22 13:42 10/18/22 13:45 10/18/22 13:52 Temperature Pulse Rate 85 84 86 Pulse Rate [Pulse Oximeter] Respiratory Rate 14 Blood Pressure 110/83 113/81 Blood Pressure [Le ft Upper Arm] Pulse Oximetry 91 93 91 Oxygen Delivery Me thod Oxygen Flow Rate 10/18/22 14:00 10/18/22 14:02 10/18/22 14:11 Temperature Pulse Rate 83 82 83 Pulse Rate [Pulse Oximeter] Respiratory Rate Blood Pressure 114/87 129/93 H Blood Pressure [Le ft Upper Arm] Pulse Oximetry 92 92 96 Oxygen Delivery Me thod Oxygen Flow Rate 10/18/22 14:15 10/18/22 14:24 10/18/22 14:25 Temperature Pulse Rate 86 89 92 Pulse Rate [Pulse Oximeter] Respiratory Rate 16 Blood Pressure Blood Pressure [Le ft Upper Arm] Pulse Oximetry 96 96 98 Oxygen Delivery Me thod Oxygen Flow Rate 10/18/22 14:30 10/18/22 14:32 10/18/22 14:41 Temperature Pulse Rate 87 87 Pulse Rate [Pulse Oximeter] Respiratory Rate Blood Pressure 125/98 H 124/90 H Blood Pressure [Le ft Upper Arm] Pulse Oximetry 98 98 96 Oxygen Delivery Me thod Oxygen Flow Rate 10/18/22 15:48 10/18/22 16:02 10/18/22 16:17 Temperature Pulse Rate 90 87 84 Pulse Rate [Pulse Oximeter] Respiratory Rate 18 Blood Pressure 129/94 H 120/78 117/77 Blood Pressure [Le ft Upper Arm] Pulse Oximetry 96 92 93 Oxygen Delivery Me thod Room Air Oxygen Flow Rate 10/18/22 16:32 10/18/22 16:46 10/18/22 17:02 Temperature Pulse Rate 86 84 88 Pulse Rate [Pulse Oximeter] Respiratory Rate 16 Blood Pressure 113/72 127/87 124/87 Blood Pressure [Le ft Upper Arm] Pulse Oximetry 92 95 97 Oxygen Delivery Me thod Oxygen Flow Rate 10/18/22 17:17 10/18/22 17:31 10/18/22 17:46 Temperature Pulse Rate 85 90 93 Pulse Rate [Pulse Oximeter] Respiratory Rate 12 Blood Pressure 124/88 127/86 124/95 H Blood Pressure [Le ft Upper Arm] Pulse Oximetry 95 92 95 Oxygen Delivery Me thod Room Air Oxygen Flow Rate 10/18/22 18:14 Temperature 98.0 F Pulse Rate Pulse Rate [Pulse Oximeter] 87 Respiratory Rate 12 Blood Pressure Blood Pressure [Le ft Upper Arm] 143/85 H Pulse Oximetry Oxygen Delivery Me thod Oxygen Flow Rate Documenting provider has reviewed patient's vital signs: yes Hospitalist - H&P: Result Labs Labs: Short CBC 10/18/22 Range/Units 10:25 WBC 5.34 (4.50-11.00) K/uL Hgb 13.0 L (13.5-17.5) gm/dL Hct 38.6 (37.0-53.0) % Plt Count 237 (140-440) K/uL BMP 10/18/22 10:25 Sodium 131 L Potassium 3.2 L Chloride 98 Carbon Dioxide 26 BUN 14 Creatinine 0.8 Glucose 140 H Calcium 8.4 Cardiac Enzymes 10/18/22 Range/Units 10:25 Troponin I < 0.01 L (0.01-0.04) ng/mL Liver Function 10/18/22 Range/Units 10:25 Total Bilirubin 0.7 (0.1-1.5) mg/dL AST 38 H (12-35) U/L ALT 30 (4-50) U/L Alkaline Phosphatase 53 (40-150) U/L Albumin 3.7 (3.3-5.0) g/dL Urine 10/18/22 Range/Units 14:25 Urine Color Yellow (Yellow) Urine Appearance Clear (Clear) Urine pH 6.0 (5.0-8.5) Ur Specific Hessmer 1.015 (1.000-1.030) Urine Protein Negative (Negative) Urine Glucose (UA) Trace A (Negative) Imaging MR Brain: Radiologist's impression: Indication: Unresponsive. Seizure. History of previous stroke. Technique: Multiplanar, multisequence MRI of the brain was performed without and with intravenous contrast. Contrast: 15 cc Dotarem. Comparison: CT head, CTA head and neck 10/18/2022. Findings: The corpus callosum, pituitary gland and clivus appear intact. Mild degenerative change visualized upper cervical spine. There is no restricted diffusion. No intracranial hemorrhage. The hippocampal formations and parahippocampal gyri are preserved without abnormal signal or volume loss. The ventricles are proportionate to the cerebral sulci. The 4th ventricle appears midline. The basal cisterns appear patent. No abnormal extra-axial fluid collection identified. Moderate region of encephalomalacia and gliosis involving the left temporoparietal junction, compatible with chronic infarct. Internal susceptibility, compatible with chronic hemosiderin deposition. There is no intracranial mass, abnormal mass-effect or midline shift identified. No abnormal enhancement. Developmental venous anomaly left parieto-occipital junction. Major intracranial vascular flow voids appear grossly intact. Both globes are preserved. Mild paranasal sinus mucosal disease. Impression: 1. No acute/subacute infarct. 2. Chronic left temporoparietal junction infarct, with chronic hemosiderin deposition. Dictated by Fidencio Pace MD @ 10/18/2022 4:08:53 PM Chest x-ray: Attestation: I have reviewed the pertinent imaging results. (No acute finding on chest x-ray) Assessment and Plan Assessment and plan (1) Seizure: Problem comment: Witness seizure in our emergency department. Presumably related to stroke in 2000. Started on Keppra. Will need outpatient follow-up with Neurology Status: Acute (2) Hemorrhagic stroke: Problem comment: Hemorrhagic stroke in 2000 involving left temporoparietal junction. Developed syndrome called Gerstmann syndrome. Status: Acute (3) Gerstmanns syndrome: Problem comment: Sequela of posterior circulation stroke in 2000. Mostly improved since then Status: Acute (4) HIV infection: Problem comment: Historically excellent viral suppression Status: Acute (5) Altered mental status: Problem comment: Initial impression was that this is a postictal condition. It is unclear that he had a seizure prior to the altered mental status. It sounds like his altered brain function began while at work and without evidence of seizure activity. He is improved but still not back to normal having difficulties following commands and difficulties giving history. Status: Acute Plan Patient be admitted to the hospital for ongoing monitoring of his altered mental status, seizures, and assessment of his functional status. Plan of care discussed with the patient, his and they are in agreement with this. Total time spent today is 80 minutes, 60 minutes in coordination of care and discussing with patient, and other providers ongoing evaluation management of seizures and altered mental status
[2022-10-18] MEDS: POTASSIUM BICARB 25 MEQ EFFERVESCENT TAB 50 MEQ PO (20:34)
[2022-10-18] MEDS: levETIRAcetam 500 MG TABLET PO (21:20)
[2022-10-18] MEDS: SIMVASTATIN 20 MG TABLET PO (21:20)
[2022-10-18] MEDS: SODIUM CHLORIDE 0.9 % (FLUSH) 10 ML SYRINGE 5 ML IVF (21:20)
[2022-10-18] MEDS: lisinopriL 20 MG TABLET PO (21:20)
--- NOTE | 2022-10-18 23:33 | PC.NURSE ---
End of Shift: Patient pleasant and cooperative. Continues to have difficulty word finding. Afebrile. Tele showing NSR. Up to bathroom with SBA. Tolerating regular with no nausea. Seizure precautions in place. Home medications Tivicay and Descovy given at 2100 OK per , verified by Gema Wiley RN.
[2022-10-19 00:31] VITALS: PULSE 71
[2022-10-19 03:00] VITALS: BP 119/82; PULSE 72; RESP 16; TEMP 37.1; O2SAT 95
[2022-10-19] MEDS: ACETAMINOPHEN 325 MG TABLET 650 MG PO ×2 (06:09→11:14)
--- NOTE | 2022-10-19 06:18 | PC.NURSE ---
Patient slept well this shift. Denies any dizziness or lightheadedness. Oriented x 4, does occasionally word search but given time he is able to answer questions. No signs of seizures observed. Headache reported, tylenol administered of house standing orders. Reviewed menu with patient and how to order food once kitchen opens. Up at bedside with stand by assist.
[2022-10-19 06:36] LABS: Basophils Absolute Auto 0.02 K/uL (0.00-0.30); Basophils Percent Auto 0.3 % (0.0-3.0); Eosinophils Absolute Auto 0.16 K/uL (0.00-0.50); Eosinophils Percent Auto 2.2 % (0.0-7.0); Hematocrit 38.2 % (37.0-53.0); Immature Granulocytes Abs Auto 0.02 K/uL (0.00-0.30); Immature Granulocytes Pct Auto 0.3 %; Lymphocytes Percent Auto 34.4 % (20-44); Mean Corpuscular HGB Conc 34 gm/dL (32-36); Mean Corpuscular Hemoglobin 32 pg (26-34); Mean Corpuscular Volume 93 fL (80-100); Monocytes Percent Auto 6.5 % (0.0-11.0); Neutrophils Percent Auto 56.3 % (42.0-72.0); Platelet Count* 242 K/uL (140-440); RDW Coefficient of Variation % 12.8 % (11.5-15.5); Red Blood Count 4.12 m/uL (4.30-5.90); White Blood Count* 7.27 K/uL (4.50-11.00)
[2022-10-19 06:38] LABS: Slide Review Reflex No
[2022-10-19 06:48] LABS: Chloride* 100 mmol/L (96-114); Sodium* 134 mmol/L (135-149)
[2022-10-19 06:49] LABS: Potassium* 3.5 mmol/L (3.6-5.1)
[2022-10-19 06:51] LABS: Carbon Dioxide* 28 mmol/L (20-32); Creatinine* 0.9 mg/dL (0.5-1.5); Est. Creatinine Clearance* 85.69; Estimated Glomerular Filt Rate 100 ml/min
[2022-10-19 06:52] LABS: Blood Urea Nitrogen* 12 mg/dL (7-30); Calcium* 8.5 mg/dL (8.4-10.6); Glucose* 110 mg/dL (60-115)
[2022-10-19 07:28] VITALS: PULSE 73
[2022-10-19] MEDS: levETIRAcetam 500 MG TABLET PO (08:29)
[2022-10-19] MEDS: hydroCHLOROthiazide 25 MG TABLET PO (08:29)
[2022-10-19] MEDS: OMEPRAZOLE 20 MG CAPSULE DR 40 MG PO (08:29)
[2022-10-19] MEDS: SODIUM CHLORIDE 0.9 % (FLUSH) 10 ML SYRINGE 5 ML IVF (08:34)
[2022-10-19 08:54] VITALS: BP 109/79; PULSE 76; RESP 16; TEMP 36.9; O2SAT 96
[2022-10-19 11:00] VITALS: BP 114/77; PULSE 92; RESP 16; TEMP 37.1; O2SAT 95
--- NOTE | 2022-10-19 13:40 | PM.DS1 ---
DS: Providers Provider Date Seen: 10/19/22 Date of admission: 10/18/22 18:15 Primary care physician: Not a Local Provider Admitting Clinician: Joe Tsang MD Consults: 10/18/22 18:25 Consult to Occupational Therapy [CONS] Routine Comment: Reason(s) for OT Consult:: Evaluate and Treat Any Restrictions?:: No Restrictions Consult to Physical Therapy [CONS] Routine Comment: Reason(s) for PT Consult:: Evaluate and Treat Any Restrictions?:: No Restrictions Attending Physician on discharge: Arleen Cadet MD [facility] Date of Discharge: 10/19/22 DS: Diagnosis Discharge Diagnosis (1) Altered mental status: Status: Acute Problem details: Initial impression was that this was related to a possible seizure at work, unwitnessed. He clearly had a seizure in our emergency room. However he presented with AMS prior to the noted seizure. No evidence of stroke on MRI. Nearly baseline at discharge still having some issues with aphasia and reading. (2) Seizure: Status: Acute Problem details: Witness seizure in our emergency department. Presumably related to stroke in 2000. Started and discharged on Keppra. Will need outpatient Neurology. 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 Mostly improved since then (6) HIV infection: Status: Acute Problem details: Historically excellent viral suppression DS: Summary Hospital Course Hospital Course: HOSPITALIST DISCHARGE SUMMARY ATTENDING PHYSICIAN: Alreen Cadet MD FINAL DIAGNOSIS: General tonic clonic seizure, AMS PFO History of hemorrhagic stroke years prior to presentation Encephalomalacia Chronically suppressed HIV HOSPITAL FOLLOWUP ISSUES: Neurology - to discuss seizure and ongoing treatment. Cardiology - to discuss PFO noted on inpatient echocardiogram REFERRALS WHILE ADMITTED: None REFERRALS AFTER DISCHARGE: As above in hospital followup issues BRIEF HOSPITAL COURSE: Michael presented with acute mental status changes while at work. Please see H&P for further detail. He had a generalized tonic-clonic seizure in our emergency room. No further seizures while admitted. He was on telemetry which was quiet. His brain MRI was reviewed with Neurology. His history of hemorrhagic stroke was noted with encephalomalacia but no new findings. Echocardiogram completed during inpatient stay revealed a PFO. These findings were discussed with neurology who felt an unwitnessed seizure at work followed by a 2nd seizure in our ER with most likely the order of events. His post ictal head cleared overnight and this was likely the explanation for his AMS before and after the witnessed seizure. The PFO was not felt to be clinically relevant as there was no evidence of ischemic stroke either previously or currently based on his MRI. SUBSTANTIVE NOTATIONS ON IMAGING, LAB, MICROBIOLOGY/PATHOLOGY STUDIES: Brain MRI 1. No acute/subacute infarct. 2. Chronic left temporoparietal junction infarct, with chronic hemosiderin deposition. Moderate region of encephalomalacia and gliosis involving the left temporoparietal junction. Normal LV size. EF 65-70%. Positive bubble study fall vein Valsalva. DISCHARGE MEDICATIONS: See Reconciled list - SIGNIFICANT CHANGES: ADDING KEPPRA 500MG BID REVIEW OF SYSTEMS No new chest pain or dyspnea Pain controlled No voiding difficulties Tolerating diet challenge PHYSICAL EXAM: CONSTITUTIONAL: VITAL SIGNS: see record. HEENT: Normocephalic, atraumatic. PERRL, EOMI, conjunctivae pink, no scleral icterus. Ears and nose externally normal. Pharynx normal. NECK: No JVD. No carotid bruit, no thyromegaly, no adenopathy. CHEST: Clear to auscultation bilaterally. HEART: S1 and S2 normal. Edema ABDOMEN: Soft, nontender. Normal bowel sounds. MUSCULOSKELETAL: No gross joint deformity or swelling. NEURO: Cranial nerves intact. Grossly intact. No asymmetric findings. SKIN: No rashes, petechiae, concerning changes PSYCHIATRIC: Mood euthymic. DISPOSITION: home with Time spent on discharge 37 minutes. Time Spent with Patient Time attestation: Total time spent providing and/or coordinating discharge services: Exam Const: Vital Signs, click to edit/add: Vital Signs - 24 hr 10/18/22 13:42 10/18/22 13:45 10/18/22 13:52 Temperature Pulse Rate 85 84 86 Pulse Rate [Left P ulse Oximeter] Pulse Rate [Pulse Oximeter] Respiratory Rate 14 Blood Pressure 110/83 113/81 Blood Pressure [Le ft Arm] Blood Pressure [Le ft Upper Arm] Pulse Oximetry 91 93 [address] [facility] 14:00 10/18/22 14:02 10/18/22 14:11 Temperature Pulse Rate 83 82 83 Pulse Rate [Left P ulse Oximeter] Pulse Rate [Pulse Oximeter] Respiratory Rate Blood Pressure 114/87 129/93 H Blood Pressure [Le ft Arm] Blood Pressure [Le ft Upper Arm] Pulse Oximetry 92 92 [address] [facility] 10/18/22 14:15 10/18/22 14:24 10/18/22 14:25 Temperature Pulse Rate 86 89 92 Pulse Rate [Left P ulse Oximeter] Pulse Rate [Pulse Oximeter] Respiratory Rate 16 Blood Pressure Blood Pressure [Le ft Arm] Blood Pressure [Le ft Upper Arm] Pulse Oximetry 96 96 [address] [facility] 10/18/22 14:30 10/18/22 14:32 10/18/22 14:41 Temperature Pulse Rate 87 87 Pulse Rate [Left P ulse Oximeter] Pulse Rate [Pulse Oximeter] Respiratory Rate Blood Pressure 125/98 H 124/90 H Blood Pressure [Le ft Arm] Blood Pressure [Le ft Upper Arm] Pulse Oximetry 98 98 [address] [facility] 10/18/22 15:48 10/18/22 16:02 10/18/22 16:17 Temperature Pulse Rate 90 87 84 Pulse Rate [Left P ulse Oximeter] Pulse Rate [Pulse Oximeter] Respiratory Rate 18 Blood Pressure 129/94 H 120/78 117/77 Blood Pressure [Le ft Arm] Blood Pressure [Le ft Upper Arm] Pulse Oximetry 96 92 93 Oxygen Delivery [facility] Room Air 10/18/22 16:32 10/18/22 16:46 10/18/22 17:02 Temperature Pulse Rate 86 84 88 Pulse Rate [Left P ulse Oximeter] Pulse Rate [Pulse Oximeter] Respiratory Rate 16 Blood Pressure 113/72 127/87 124/87 Blood Pressure [Le ft Arm] Blood Pressure [Le ft Upper Arm] Pulse Oximetry 92 95 [address] [facility] 10/18/22 17:17 10/18/22 17:31 10/18/22 17:46 Temperature Pulse Rate 85 90 93 Pulse Rate [Left P ulse Oximeter] Pulse Rate [Pulse Oximeter] Respiratory Rate 12 Blood Pressure 124/88 127/86 124/95 H Blood Pressure [Le ft Arm] Blood Pressure [Le ft Upper Arm] Pulse Oximetry 95 92 95 Oxygen Delivery [facility] Room Air 10/18/22 18:14 10/18/22 19:13 10/18/22 20:00 Temperature 98.0 F 98.4 F Pulse Rate 94 Pulse Rate [Left P ulse Oximeter] 93 Pulse Rate [Pulse Oximeter] 87 Respiratory Rate 12 18 Blood Pressure Blood Pressure [Le ft Arm] 138/84 Blood Pressure [Le ft Upper Arm] 143/85 H Pulse Oximetry 97 Oxygen Delivery [facility] Room Air 10/18/22 23:00 10/19/22 00:31 10/19/22 03:00 Temperature 97.7 F 98.7 F Pulse Rate 71 Pulse Rate [Left P ulse Oximeter] 77 72 Pulse Rate [Pulse Oximeter] Respiratory Rate 16 16 Blood Pressure Blood Pressure [Le ft Arm] 114/81 119/82 Blood Pressure [Le ft Upper Arm] Pulse Oximetry [address] [facility] Room Air 10/19/22 07:28 10/19/22 08:54 10/19/22 11:00 Temperature 98.5 F 98.7 F Pulse Rate 73 Pulse Rate [Left P ulse Oximeter] 76 92 Pulse Rate [Pulse Oximeter] Respiratory Rate 16 16 Blood Pressure Blood Pressure [Le ft Arm] 109/79 114/77 Blood Pressure [Le ft Upper Arm] Pulse Oximetry 96 95 Oxygen Delivery [facility] Room Air Room Air DS: Data Data Completed and Pending Labs on day of discharge: Labs from last 24 hours 10/19/22 10/18/22 10/18/22 05:38 15:12 14:25 WBC 7.27 RBC 4.12 L Hgb 13.0 L Hct 38.2 MCV 93 MCH 32 MCHC 34 RDW Coeff of Denisse 12.8 Plt Count 242 Neut % (Auto) 56.3 Lymph % (Auto) 34.4 [place] % (Auto) 6.5 Eos % (Auto) 2.2 Baso % (Auto) 0.3 Neut # (Auto) 4.10 Lymph # (Auto) 2.50 [place] # (Auto) 0.50 Eos # (Auto) 0.16 Baso # (Auto) 0.02 Abs Immat Gran (auto) 0.02 Imm/Tot Granulo (auto) 0.3 Sodium 134 L Potassium 3.5 L Chloride 100 Carbon Dioxide 28 BUN 12 Creatinine 0.9 Estimated Creat Clear 85.69 Estimated GFR 100 Glucose 110 Calcium 8.5 Urine Color Urine Appearance Urine pH Ur Specific [place] Urine Protein Urine Glucose (UA) Urine Ketones Urine Blood Urine Nitrite Urine Bilirubin Urine Urobilinogen Ur Leukocyte Esterase Urine RBC Urine WBC Ur Squamous Epith Cells Urine Bacteria Urine Opiates Screen Ur Buprenorphine Scrn Ur Oxycodone Screen Urine Methadone Screen Ur Propoxyphene Screen Ur Barbiturates Screen U Tricyclic Antidepress Ur Phencyclidine Scrn Ur Amphetamines Screen U Methamphetamines Scrn U Benzodiazepines Scrn Urine Cocaine Screen U Marijuana (THC) Screen Ur Drug Screen Comment See Note Lab Acknowledgement Test Added 10/18/22 10/18/22 10/18/22 14:25 14:25 14:25 WBC RBC Hgb Hct MCV MCH MCHC RDW Coeff of Denisse Plt Count Neut % (Auto) Lymph % (Auto) [place] % (Auto) Eos % (Auto) Baso % (Auto) Neut # (Auto) Lymph # (Auto) [place] # (Auto) Eos # (Auto) Baso # (Auto) Abs Immat Gran (auto) Imm/Tot Granulo (auto) Sodium Potassium Chloride Carbon Dioxide BUN Creatinine Estimated Creat Clear Estimated GFR Glucose Calcium Urine Color Urine Appearance Urine pH Ur Specific [place] Urine Protein Urine Glucose (UA) Urine Ketones Urine Blood Urine Nitrite Urine Bilirubin Urine Urobilinogen Ur Leukocyte Esterase Urine RBC Urine WBC Ur Squamous Epith Cells Urine Bacteria Urine Opiates Screen Ur Buprenorphine Scrn Ur Oxycodone Screen Urine Methadone Screen Ur Propoxyphene Screen Ur Barbiturates Screen U Tricyclic Antidepress Ur Phencyclidine Scrn Ur Amphetamines Screen U Methamphetamines Scrn U Benzodiazepines Scrn Negative Urine Cocaine Screen Negative Cancelled U Marijuana (THC) Screen POSITIVE A* Cancelled Ur Drug Screen Comment Cancelled Lab Acknowledgement 10/18/22 10/18/22 10/18/22 14:25 14:25 14:25 WBC RBC Hgb Hct MCV MCH MCHC RDW Coeff of Denisse Plt Count Neut % (Auto) Lymph % (Auto) [place] % (Auto) Eos % (Auto) Baso % (Auto) Neut # (Auto) Lymph # (Auto) [place] # (Auto) Eos # (Auto) Baso # (Auto) Abs Immat Gran (auto) Imm/Tot Granulo (auto) Sodium Potassium Chloride Carbon Dioxide BUN Creatinine Estimated Creat Clear Estimated GFR Glucose Calcium Urine Color Urine Appearance Urine pH Ur Specific [place] Urine Protein Urine Glucose (UA) Urine Ketones Urine Blood Urine Nitrite Urine Bilirubin Urine Urobilinogen Ur Leukocyte Esterase Urine RBC Urine WBC Ur Squamous Epith Cells Urine Bacteria Urine Opiates Screen Ur Buprenorphine Scrn Ur Oxycodone Screen Urine Methadone Screen Ur Propoxyphene Screen Ur [place] Screen U Tricyclic Antidepress Ur Phencyclidine Scrn Negative Ur Amphetamines Screen Negative Cancelled U Methamphetamines Scrn Negative Cancelled U Benzodiazepines Scrn Cancelled Urine Cocaine Screen U Marijuana (THC) Screen Ur Drug Screen Comment Lab Acknowledgement 10/18/22 10/18/22 10/18/22 14:25 14:25 14:25 WBC RBC Hgb Hct MCV MCH MCHC RDW Coeff of Denisse Plt Count Neut % (Auto) Lymph % (Auto) [place] % (Auto) Eos % (Auto) Baso % (Auto) Neut # (Auto) Lymph # (Auto) [place] # (Auto) Eos # (Auto) Baso # (Auto) Abs Immat Gran (auto) Imm/Tot Granulo (auto) Sodium Potassium Chloride Carbon Dioxide BUN Creatinine Estimated Creat Clear Estimated GFR Glucose Calcium Urine Color Urine Appearance Urine pH Ur Specific [place] Urine Protein Urine Glucose (UA) Urine Ketones Urine Blood Urine Nitrite Urine Bilirubin Urine Urobilinogen Ur Leukocyte Esterase Urine RBC Urine WBC Ur Squamous Epith Cells Urine Bacteria Urine Opiates Screen Ur Buprenorphine Scrn Ur Oxycodone Screen Urine Methadone Screen Ur Propoxyphene Screen Negative Ur [place]bit[place] Screen Negative Cancelled U Tricyclic Antidepress Negative Cancelled Ur Phencyclidine Scrn Cancelled Ur Amphetamines Screen U Methamphetamines Scrn U Benzodiazepines Scrn Urine Cocaine Screen U Marijuana (THC) Screen Ur Drug Screen Comment Lab Acknowledgement 10/18/22 10/18/22 10/18/22 14:25 14:25 14:25 WBC RBC Hgb Hct MCV MCH MCHC RDW Coeff of Denisse Plt Count Neut % (Auto) Lymph % (Auto) [place] % (Auto) Eos % (Auto) Baso % (Auto) Neut # (Auto) Lymph # (Auto) [place] # (Auto) Eos # (Auto) Baso # (Auto) Abs Immat Gran (auto) Imm/Tot Granulo (auto) Sodium Potassium Chloride Carbon Dioxide BUN Creatinine Estimated Creat Clear Estimated GFR Glucose Calcium Urine Color Urine Appearance Urine pH Ur Specific [place] Urine Protein Urine Glucose (UA) Urine Ketones Urine Blood Urine Nitrite Urine Bilirubin Urine Urobilinogen Ur Leukocyte Esterase Urine RBC Urine WBC Ur Squamous Epith Cells Urine Bacteria Urine Opiates Screen Negative Ur Buprenorphine Scrn Cancelled Ur Oxycodone Screen Negative Cancelled Urine Methadone Screen Negative Cancelled Ur Propoxyphene Screen Cancelled Ur Barbiturates Screen U Tricyclic Antidepress Ur Phencyclidine Scrn Ur Amphetamines Screen U Methamphetamines Scrn U Benzodiazepines Scrn Urine Cocaine Screen U Marijuana (THC) Screen Ur Drug Screen Comment Lab Acknowledgement 10/18/22 10/18/22 14:25 10:25 WBC 5.34 RBC 4.15 L Hgb 13.0 L Hct 38.6 MCV 93 MCH 31 MCHC 34 RDW Coeff of Denisse 12.6 Plt Count 237 Neut % (Auto) 56.5 Lymph % (Auto) 34.8 [place] % (Auto) 6.4 Eos % (Auto) 1.5 Baso % (Auto) 0.6 Neut # (Auto) 3.02 Lymph # (Auto) 1.86 [place] # (Auto) 0.30 Eos # (Auto) 0.08 Baso # (Auto) 0.03 Abs Immat Gran (auto) 0.01 Imm/Tot Granulo (auto) 0.2 Sodium Potassium Chloride Carbon Dioxide BUN Creatinine Estimated Creat Clear Estimated GFR Glucose Calcium Urine Color Yellow Urine Appearance Clear Urine pH 6.0 Ur Specific [place] 1.015 Urine Protein Negative Urine Glucose (UA) Trace A Urine Ketones Negative Urine Blood Trace-intact A Urine Nitrite Negative Urine Bilirubin Negative Urine Urobilinogen 0.2 Ur Leukocyte Esterase Negative Urine RBC 0-2 Urine WBC 0-2 Ur Squamous Epith Cells None Urine Bacteria None Urine Opiates Screen Cancelled Ur Buprenorphine Scrn Ur Oxycodone Screen Urine Methadone Screen Ur Propoxyphene Screen Ur Barbiturates Screen U Tricyclic Antidepress Ur Phencyclidine Scrn Ur Amphetamines Screen U Methamphetamines Scrn U Benzodiazepines Scrn Urine Cocaine Screen U Marijuana (THC) Screen Ur Drug Screen Comment Lab Acknowledgement Discharge Plan Discharge Disposition: Home w/ Parent or Adult Date of Admission: 10/18/22 18:15 Attending Provider on Discharge: Arleen Cadet Primary Care Provider: Provider,Not a Local Anticipated Discharge Date/Time: 10/19/22 12:28 Discharge Medications: New levetiracetam 500 mg Tablet 500 mg PO BID Qty: 60 0RF Continued lisinopril 20 mg tablet 20 mg PO DAILY pantoprazole 40 mg tablet,delayed release (DR/EC) 40 mg PO DAILY simvastatin 20 mg tablet 20 mg PO HS hydrochlorothiazide 25 mg tablet 25 mg PO DAILY cholecalciferol (vitamin D3) 25 mcg (1,000 unit) tablet 50 mcg PO DAILY Tivicay 50 mg tablet 50 mg PO DAILY Descovy 200-25 mg tablet 1 tab PO DAILY Discharge Orders: Discharge Order (Routine); Ordered 10/19/22 Ordered By: Arleen Cadet Consulting provider completed their portion of the discharge: Yes Patient Education: Levetiracetam (By mouth), New-Onset Seizure in Adults (DC) Additional Instructions: NO DRIVING UNTIL CLEARED BY NEUROLOGY -New seizure medication twice a day as directed -start occupational therapy for current deficits in reading/speaking Activity Level: Light activity Discharge Diet: Heart Healthy (2 gm sodium, low fat) Follow Up Appointments: [facility] [Outside] - 10/26/22 ([facility] [address], [address] [place] [address] [email or web address] [address], [place] [address] ? ~2.4 mi ) Shaun Jeffrey MD [Staff Physician] - 10/26/22 Forms: [facility] Info Instructions
--- NOTE | 2022-10-19 16:36 | PC.NURSE ---
Discharge-- Very pleasant and cooperative, alert and oriented patient was discharged to home ambulatory with SO at approximately 1445. VSS and pt is afebrile. SPO2 maintained >90% on RA. He c/o a headache today which he rated as high as 4 out of 10 that appears well managed with Tylenol. He also still struggled occasionally with word finding (unsure how much was chronic for patient), and pt was unable to comprehend writing and is unable to read (which patient stated is new for him.) Md was notified. Other neuro checks WNL. LS CTA. Telemetry showed NSR. He denied nausea and ate 100% of breakfast and 75% of lunch without difficulty. He stated a normal BM yesterday. SO was at bedside and appears loving and supportive. Discharge education was provided including diagnosis info, symptoms to report, medications and follow up plan. All questions were answered. SL (x2) were removed tips intact.
== END 2022-10-19 15:00 | disposition home or self-care (01) ==
LOC: ED 17:07 → MEDSURG 18:15
PROVIDERS: Admitting Provider Family Medicine; Emergency Provider Family Medicine; Visit Provider Family Medicine
DX: R41.82 Altered mental status, unspecified (principal); R56.9 Unspecified convulsions; G93.89 Other specified disorders of brain; R48.8 Other symbolic dysfunctions; Q21.12 Patent foramen ovale; B20 Human immunodeficiency virus [HIV] disease; I10 Essential (primary) hypertension; E78.5 Hyperlipidemia, unspecified; R26.81 Unsteadiness on feet; R05.3 Chronic cough; R47.9 Unspecified speech disturbances; Z86.79 Personal history of other diseases of the circulatory system; Z86.19 Personal history of other infectious and parasitic diseases; Z98.890 Other specified postprocedural states; F17.210 Nicotine dependence, cigarettes, uncomplicated; Z86.73 Personal history of transient ischemic attack (TIA), and cerebral infarction without residual deficits
CPT/HCPCS: 36415; 70450; 70496; 70498; 70553; 71045; 80048; 80053; 80306; 81001; 82077; 83605; 83735; 84484; 85025; 85610; 85730; 86140; 93005; 93306; 94761; 96361; 96365; 96375; 97116; 97161; 97165; 99285; 99291; G0378; A0425; A0427; A9270; A9575; J1953; J2060; J7120; Q9967

== ENCOUNTER 2022-10-24 14:39 | Outpatient (RCR) | payer OTHER, SELFPAY | END 2023-02-21 23:59 | disposition home or self-care (01) | PROVIDERS: Visit Provider Family Medicine | DX: R53.1 Weakness (principal); R41.82 Altered mental status, unspecified; R56.9 Unspecified convulsions; Z51.89 Encounter for other specified aftercare; Z86.73 Personal history of transient ischemic attack (TIA), and cerebral infarction without residual deficits; R26.89 Other abnormalities of gait and mobility | CPT/HCPCS: 97165; 97535 ==

== ENCOUNTER 2024-01-09 08:30 | Outpatient (RCR) | payer BC, SELFPAY | END 2024-05-08 23:59 | disposition home or self-care (01) | PROVIDERS: Visit Provider Internal Medicine Hospice and Palliative Medicine | DX: F32.1 Major depressive disorder, single episode, moderate (principal); F48.2 Pseudobulbar affect; I61.1 Nontraumatic intracerebral hemorrhage in hemisphere, cortical; R56.9 Unspecified convulsions; Z51.89 Encounter for other specified aftercare | CPT/HCPCS: 97165; 97535 ==